=== PATIENT | female | born 1985 | race Caucasian/White ===

== ENCOUNTER 2018-02-27 15:48 | Inpatient (IN) | payer MEDICAID ==
[~2018-02-27] VITALS: Ht 162.6 cm; Wt 103.9 kg
[~2018-02-27 15:48] MED LIST: PREN1TAB87 PO
[2018-02-27] MEDS ORDERED: DEXT 5%/LR + PITOCIN 20UNITS/L 1,000 ML IV SCH (19:13)
[2018-02-27] MEDS ORDERED: METHYLERGONOVINE MALEATE 0.2 MG/ML IM PRN (19:15)
[2018-02-27] MEDS ORDERED: LIDOCAINE HCL 1% 20ML VIAL (Pyxis) INJ INFIL SCH (19:15)
[2018-02-27] MEDS ORDERED: BUTORPHANOL TARTRATE 2 MG/ML VIAL IV PRN (19:15)
[2018-02-27] MEDS ORDERED: CARBOPROST TROMETHAMINE 250 MCG/ML AMPUL IM PRN (19:15)
[2018-02-27] MEDS ORDERED: MISOPROSTOL 100MCG TABLET VG SCH (19:15)
[2018-02-27] MEDS ORDERED: LIDOCAINE HCL/PF 1% 10 MG/ML 5ML VIAL IJ SCH (19:30)
[2018-02-27] MEDS ORDERED: LIDOCAINE HCL/PF 1% 10 MG/ML 30ML VIAL IJ SCH (19:30)
[2018-02-27] MEDS: LACTATED RINGERS 1,000 ML IV SCH ×2 (19:50→20:56)
[2018-02-27 20:35] LABS: BASOPHILS % 0.8 % (0.0-2.0); EOSINOPHILS % 0.3 % (0.0-5.0); HEMATOCRIT. 36.1 % (36.0-48.0); HEMOGLOBIN. 12.1 g/dL (12.0-16.0); INR 0.9; LYMPHOCYTES % 16.2 % (20.0-50.0); MEAN CORPUSCULAR HEMOGLOBIN 29.1 pg (28.0-32.0); MEAN CORPUSCULAR VOLUME 87.2 fL (81.0-99.0); MEAN PLATELET VOLUME 8.9 fl (7.4-10.4); MONOCYTES % 5.5 % (2.0-8.0); NEUTROPHILS % 77.2 % (40.0-76.0); PLATELET 230 x1000/uL (130-400); PROTHROMBIN TIME 9.6 sec (9.4-11.6); RED BLOOD CELL COUNT 4.14 mill/uL (4.2-5.4); RED CELL DISTRIBUTION WIDTH 16.1 % (11.6-14.6)
[2018-02-27 20:36] LABS: *AMPHETAMINES SCREEN URINE NEGATIVE (NEGATIVE); *BARBITURATES SCREEN URINE NEGATIVE (NEGATIVE); *BENZODIAZEPINES SCREEN URINE NEGATIVE (NEGATIVE); *COCAINE SCREEN URINE NEGATIVE (NEGATIVE); CLARITY URINE CLEAR (CLEAR); COLOR URINE YELLOW (YELLOW); KETONES URINE NEGATIVE (NEGATIVE); LEUKOCYTE ESTERASE URINE NEGATIVE (NEGATIVE); METHADONE URINE SCREEN NEGATIVE (NEGATIVE); NITRITE URINE NEGATIVE (NEGATIVE); OCCULT BLOOD URINE NEGATIVE (NEGATIVE); PH URINE 6.5 (4.5-8.0); PROTEIN URINE NEGATIVE (NEGATIVE); UROBILINOGEN URINE 0.2 E.U./dL (0.2-1.0)
[2018-02-27 20:37] LABS: CANNABINOID URINE SCREEN NEGATIVE (NEGATIVE); OPIATES URINE SCREEN NEGATIVE (NEGATIVE); PHENCYCLIDINE URINE SCREEN NEGATIVE (NEGATIVE)
[2018-02-27 21:06] LABS: HEPATITIS B SURFACE ANTIGEN NEGATIVE
[2018-02-27 21:11] LABS: RUBELLA IGG > 500.0 IU/mL (4.99-10)
[2018-02-28] MEDS: LACTATED RINGERS 1,000 ML IV SCH ×2 (04:56→13:17)
[2018-02-28] MEDS ORDERED: PENICILLIN G POTASSIUM 5 MMU in DEXT 5% WATER 100 ML IV SCH (09:00)
[2018-02-28] MEDS ORDERED: NALOXONE HCL 0.4 MG/ML 1ML VIAL ONE (15:12)
[2018-02-28] MEDS ORDERED: NALOXONE HCL 0.4 MG/ML 1ML VIAL IM PRN (15:30)
[2018-02-28] MEDS ORDERED: HEMORRHOIDAL SUPP PR PRN (15:45)
[2018-02-28] MEDS ORDERED: GLYCERIN/WITCH HAZEL LEAF MEDICATED PAD TOP PRN (15:45)
[2018-02-28] MEDS ORDERED: ACETAMINOPHEN WITH CODEINE 300/30MG TABLET PO PRN ×2 (15:45)
[2018-02-28] MEDS ORDERED: IBUPROFEN 400MG TABLET PO PRN (15:45)
[2018-02-28] MEDS ORDERED: BISACODYL 10MG SUPP PR PRN (15:45)
[2018-02-28] MEDS ORDERED: LANOLIN OINT 0.25 GM TUBE TOP PRN (15:45)
[2018-02-28] MEDS ORDERED: DEXT 5%/LR + PITOCIN 20UNITS/L 1,000 ML IV SCH (15:45)
[2018-02-28] MEDS ORDERED: BENZOCAINE/LANOLIN/ALOE VERA SPRAY TOP PRN (15:45)
[2018-02-28] MEDS ORDERED: DIPHENHYDRAMINE 25MG CAPSULE PO PRN (15:45)
[2018-02-28] MEDS ORDERED: PENICILLIN G POTASSIUM 2.5 MMU in DEXTROSE 5% WATER 50 ML IV SCH (16:00)
[2018-02-28] MEDS ORDERED: TETANUS, DIPHTHERIA, PERTUSSIS VAC/PF 0.5ML (>7YR OLD) IM ONE (17:00)
[2018-02-28 17:59] VITALS: BP 107/58
[2018-02-28 18:56] VITALS: BP 112/57
[2018-02-28 20:00] VITALS: BP 108/54
[2018-02-28] MEDS: DOCUSATE SODIUM 100MG CAPSULE PO SCH (23:09)
[2018-03-01 06:31] LABS: BASOPHILS % 0.2 % (0.0-2.0); EOSINOPHILS % 0.4 % (0.0-5.0); HEMATOCRIT. 34.6 % (36.0-48.0); HEMOGLOBIN. 11.5 g/dL (12.0-16.0); LYMPHOCYTES % 15.2 % (20.0-50.0); MEAN CORPUSCULAR VOLUME 87.5 fL (81.0-99.0); MEAN PLATELET VOLUME 8.5 fl (7.4-10.4); MONOCYTES % 6.5 % (2.0-8.0); NEUTROPHILS % 77.7 % (40.0-76.0); PLATELET 191 x1000/uL (130-400); RED BLOOD CELL COUNT 3.95 mill/uL (4.2-5.4); RED CELL DISTRIBUTION WIDTH 16.1 % (11.6-14.6)
[2018-03-01 08:00] VITALS: BP 116/52
[2018-03-01] MEDS: PRENATAL VIT/FE FUMARATE/FA TABLET PO SCH (09:36)
[2018-03-01] MEDS: FERROUS SULFATE 325MG TABLET PO SCH ×2 (13:00→17:41)
[2018-03-01 14:50] VITALS: BP 109/68
[2018-03-01] MEDS ORDERED: MEDROXYPROGESTERONE ACETATE 150MG/ML VIAL IM SCH (15:00)
[2018-03-01] MEDS: DOCUSATE SODIUM 100MG CAPSULE PO SCH (21:58)
[2018-03-01 22:07] VITALS: BP 102/57
[2018-03-02 04:44] VITALS: BP 111/52
[2018-03-02] MEDS: FERROUS SULFATE 325MG TABLET PO SCH (08:57)
[2018-03-02] MEDS: PRENATAL VIT/FE FUMARATE/FA TABLET PO SCH (08:59)
[2018-03-02 09:00] VITALS: BP 111/52
== END 2018-03-02 12:50 | disposition home or self-care (01) | DRG 560 ==
LOC: L&D 15:48 → OBSVTOIN 15:48 → L&D 02-28 07:24 → 7EST PP/OB 02-28 18:07
PROVIDERS: ADMIT Specialist; ATTEND Specialist
PROC: 0HQ9XZZ Repair Perineum Skin, External Approach (ICD-10-PCS; 2018-02-28)
PROC: 10E0XZZ Delivery of Products of Conception, External Approach (ICD-10-PCS; principal; 2018-02-28 15:21)
DX: O69.81X0 Labor and delivery complicated by cord around neck, without compression, not applicable or unspecified (principal); O70.0 First degree perineal laceration during delivery; Z37.0 Single live birth; Z3A.38 38 weeks gestation of pregnancy; Z79.899 Other long term (current) drug therapy
CPT/HCPCS: 36415; 76805; 76818; 80305; 81003; 85025; 85610; 85730; 86592; 86703; 86762; 86850; 86900; 87340; 90715; G0378; J0595; J1050; J2310; J2540; J2590; J3490; J7060; J7120

== ENCOUNTER 2020-03-22 17:32 | Observation (INO) | payer MEDICAID ==
[~2020-03-22] VITALS: Ht 162.6 cm; Wt 103.0 kg
== END 2020-03-22 22:40 | disposition home or self-care (01) ==
LOC: INTOOBSV 17:32 → 8 EST LDRP 17:32
PROVIDERS: ADMIT Specialist; ATTEND Specialist
DX: O42.92 Full-term premature rupture of membranes, unspecified as to length of time between rupture and onset of labor (principal); O62.9 Abnormality of forces of labor, unspecified; Z3A.37 37 weeks gestation of pregnancy
CPT/HCPCS: 76805; 76818; 99281; G0378

== ENCOUNTER 2020-03-28 04:26 | Inpatient (IN) | payer MEDICAID ==
[~2020-03-28] VITALS: Ht 30.5 cm; Wt 0.5 kg
[2020-03-28] MEDS ORDERED: DEXT 5%/LR + PITOCIN 20UNITS/L 2,000 ML IV ONE (05:14)
[2020-03-28] MEDS ORDERED: DEXT 5%/LR + PITOCIN 20UNITS/L 1,000 ML IV SCH ×2 (05:35→07:19)
[2020-03-28] MEDS ORDERED: LACTATED RINGERS 1,000 ML IV SCH (05:35)
[2020-03-28] MEDS ORDERED: RHO(D) IMMUNE GLOBULIN 300 MCG/SYR IM ONE (05:45)
[2020-03-28] MEDS ORDERED: METHYLERGONOVINE MALEATE 0.2 MG/ML IM PRN ×2 (05:45→07:30)
[2020-03-28] MEDS ORDERED: LIDOCAINE HCL 1% 20ML VIAL (Pyxis) INJ INFIL SCH (05:45)
[2020-03-28] MEDS ORDERED: NALOXONE HCL 0.4 MG/ML 1ML VIAL IM PRN (05:45)
[2020-03-28] MEDS ORDERED: MINERAL OIL 30ML BOTTLE PR NR (06:00)
[2020-03-28 06:08] LABS: BASOPHILS % 0.4 % (0.0-2.0); EOSINOPHILS % 0.3 % (0.0-5.0); HEMATOCRIT. 36.1 % (36.0-48.0); HEMOGLOBIN. 11.9 g/dL (12.0-16.0); LYMPHOCYTES % 17.3 % (20.0-50.0); MEAN CORPUSCULAR HEMOGLOBIN 26.8 pg (28.0-32.0); MEAN CORPUSCULAR VOLUME 81.4 fL (81.0-99.0); MEAN PLATELET VOLUME 8.8 fl (7.4-10.4); MONOCYTES % 6.5 % (2.0-8.0); NEUTROPHILS % 75.5 % (40.0-76.0); PLATELET 244 x1000/uL (130-400); RED BLOOD CELL COUNT 4.44 mill/uL (4.2-5.4); RED CELL DISTRIBUTION WIDTH 16.8 % (11.6-14.6)
[2020-03-28 06:18] LABS: INR 0.9; PARTIAL THROMBOPLASTIN TIME 32.8 sec (23.4-31.0); PROTHROMBIN TIME 9.9 sec (9.6-11.0)
[2020-03-28 06:46] LABS: CLARITY URINE CLEAR (CLEAR); COLOR URINE YELLOW (YELLOW); KETONES URINE NEGATIVE (NEGATIVE); LEUKOCYTE ESTERASE URINE 3+ (NEGATIVE); NITRITE URINE NEGATIVE (NEGATIVE); OCCULT BLOOD URINE 2+ (NEGATIVE); PH URINE 6.5 (4.5-8.0); PROTEIN URINE NEGATIVE (NEGATIVE); SPECIFIC GRAVITY URINE 1.012 (1.005-1.030); UROBILINOGEN URINE 0.2 E.U./dL (0.2-1.0)
[2020-03-28 06:56] LABS: *BARBITURATES SCREEN URINE NEGATIVE (NEGATIVE)
[2020-03-28 06:57] LABS: *AMPHETAMINES SCREEN URINE NEGATIVE (NEGATIVE); *BENZODIAZEPINES SCREEN URINE NEGATIVE (NEGATIVE); *COCAINE SCREEN URINE NEGATIVE (NEGATIVE); CANNABINOID URINE SCREEN NEGATIVE (NEGATIVE); METHADONE URINE SCREEN NEGATIVE (NEGATIVE); OPIATES URINE SCREEN NEGATIVE (NEGATIVE); PHENCYCLIDINE URINE SCREEN NEGATIVE (NEGATIVE)
[2020-03-28] MEDS ORDERED: LANOLIN OINT 7GM TUBE TOP PRN (07:30)
[2020-03-28] MEDS ORDERED: RHO(D) IMMUNE GLOBULIN 300 MCG/SYR IM PRN (07:30)
[2020-03-28] MEDS ORDERED: DIPHENHYDRAMINE 25MG CAPSULE PO PRN (07:30)
[2020-03-28] MEDS ORDERED: IBUPROFEN 400MG TABLET PO PRN (07:30)
[2020-03-28] MEDS: IBUPROFEN 800MG TABLET PO PRN (08:09)
[2020-03-28 08:45] VITALS: BP 104/48
[2020-03-28] MEDS ORDERED: PRENATAL VIT/FE FUMARATE/FA TABLET PO SCH (09:00)
[2020-03-28 09:15] VITALS: BP 106/44
[2020-03-28 13:19] LABS: HEPATITIS B SURFACE ANTIGEN NEGATIVE
[2020-03-28 16:18] VITALS: BP 92/53
[2020-03-28 20:00] VITALS: BP 104/46
[2020-03-29] MEDS: IBUPROFEN 800MG TABLET PO PRN ×2 (00:07→15:59)
[2020-03-29 04:00] VITALS: BP 93/55
[2020-03-29 07:23] LABS: BASOPHILS % 0.4 % (0.0-2.0); EOSINOPHILS % 1.2 % (0.0-5.0); HEMATOCRIT. 31.3 % (36.0-48.0); HEMOGLOBIN. 10.4 g/dL (12.0-16.0); LYMPHOCYTES % 27.8 % (20.0-50.0); MEAN CORPUSCULAR HEMOGLOBIN 26.8 pg (28.0-32.0); MEAN PLATELET VOLUME 8.7 fl (7.4-10.4); MONOCYTES % 7.3 % (2.0-8.0); NEUTROPHILS % 63.3 % (40.0-76.0); PLATELET 203 x1000/uL (130-400); RED BLOOD CELL COUNT 3.86 mill/uL (4.2-5.4); RED CELL DISTRIBUTION WIDTH 16.9 % (11.6-14.6)
[2020-03-29] MEDS ORDERED: EPHEDRINE SULFATE 50MG/ML VIAL ONE (09:01)
[2020-03-29] MEDS ORDERED: GLYCOPYRROLATE 0.2 MG/ML 2ML VIAL ONE (09:01)
[2020-03-29] MEDS ORDERED: FENTANYL CITRATE/PF 50MCG/ML 2ML VIAL ONE (09:01)
[2020-03-29] MEDS ORDERED: PHENYLEPHRINE HCL 10 MG/ML 1ML (IV VIAL) IV ONE (09:02)
[2020-03-29] MEDS ORDERED: ONDANSETRON HCL 4MG/2ML INJ ONE (09:02)
[2020-03-29] MEDS ORDERED: SODIUM CHLORIDE 0.9% 10ML VIAL ONE ×2 (09:09→09:34)
[2020-03-29] MEDS ORDERED: MIDAZOLAM HCL 2 MG/2 ML VIAL ONE ×2 (09:11→09:36)
[2020-03-29] MEDS ORDERED: CEFAZOLIN SODIUM 1000MG/VIAL ONE (09:34)
[2020-03-29] MEDS ORDERED: LIDOCAINE HCL/PF 2% 20MG/ML 5 ML/VIAL ONE ×2 (09:57→09:58)
[2020-03-29] MEDS ORDERED: OXYCODONE HCL/ACETAMINOPHEN 5/325MG TABLET PO PRN (10:15)
[2020-03-29] MEDS ORDERED: LANOLIN OINT 7GM TUBE TOP PRN (10:15)
[2020-03-29] MEDS ORDERED: BISACODYL 10MG SUPP PR PRN (10:15)
[2020-03-29] MEDS ORDERED: DIPHENHYDRAMINE 25MG CAPSULE PO PRN (10:15)
[2020-03-29] MEDS ORDERED: GLYCERIN/WITCH HAZEL LEAF MEDICATED PAD TOP PRN (10:15)
[2020-03-29] MEDS ORDERED: IBUPROFEN 400MG TABLET PO PRN (10:15)
[2020-03-29] MEDS: SIMETHICONE 80MG TABLET CHEW PO SCH ×2 (15:58→20:50)
[2020-03-29] MEDS ORDERED: DOCUSATE SODIUM 100MG CAPSULE PO SCH (21:00)
[2020-03-29 22:00] VITALS: BP 109/79
[2020-03-30] MEDS: IBUPROFEN 800MG TABLET PO PRN (05:07)
[2020-03-30 05:25] VITALS: BP 110/78
[2020-03-30] MEDS ORDERED: FERR325T23 PO (06:52)
[2020-03-30] MEDS ORDERED: FERR325T6 MT (06:52)
[2020-03-30] MEDS ORDERED: IBUP-2030 PO (06:52)
[2020-03-30] MEDS ORDERED: FERROUS SULFATE 325MG TABLET PO SCH (07:30)
[2020-03-30] MEDS: SIMETHICONE 80MG TABLET CHEW PO SCH (08:30)
[2020-03-30] MEDS ORDERED: PRENATAL VIT/FE FUMARATE/FA TABLET PO SCH (09:00)
[2020-03-30 13:13] VITALS: BP 121/50
== END 2020-03-30 12:15 | disposition home or self-care (01) | DRG 541 ==
LOC: OBSVTOIN 04:26 → 8 EST LDRP 04:26 → 8EST 08:18
PROVIDERS: ADMIT Specialist; ATTEND Specialist
PROC: 10E0XZZ Delivery of Products of Conception, External Approach (ICD-10-PCS; principal; 2020-03-28)
PROC: 0UB70ZZ Excision of Bilateral Fallopian Tubes, Open Approach (ICD-10-PCS; 2020-03-29)
DX: O99.214 Obesity complicating childbirth (principal); D62 Acute posthemorrhagic anemia; Z37.0 Single live birth; O99.03 Anemia complicating the puerperium; Z3A.38 38 weeks gestation of pregnancy; Z30.2 Encounter for sterilization; Z03.818 Encounter for observation for suspected exposure to other biological agents ruled out
CPT/HCPCS: 36415; 80305; 81003; 85025; 86592; 86703; 86762; 86850; 86900; 87340; 88302; 99281; J0690; J2250; J2370; J2405; J2590; J3010; J3490; U0003-CS